=== PATIENT | male | born 1970 | race Caucasian/White ===

== ENCOUNTER 2020-07-05 18:28 | Emergency (ER) | payer OTHER ==
[2020-07-05] MEDS ORDERED: Lidocaine 1% w/Epinephrine 1:100K 20 ML VIAL ONE (18:38)
[2020-07-05] MEDS ORDERED: Boostrix 0.5 ML VIAL ONE (18:41)
[2020-07-05] MEDS ORDERED: Bacitracin 1 PK ONE (19:17)
== END 2020-07-05 19:42 | disposition home or self-care (01) ==
LOC: ERS 18:28
DX: S01.511A Laceration without foreign body of lip, initial encounter (principal); I10 Essential (primary) hypertension; J45.909 Unspecified asthma, uncomplicated; Z79.899 Other long term (current) drug therapy; W20.8XXA Other cause of strike by thrown, projected or falling object, initial encounter
CPT/HCPCS: 12013; 90471; 90715